=== PATIENT | female | born 1965 | race Caucasian/White ===

== ENCOUNTER → 2022-01-23 09:16 | Outpatient (CLI) | payer OTHER, BC, SELFPAY ==
--- NOTE | 2022-01-23 09:21 | XR_ITS ---
FINAL REPORT TECHNIQUE: Bone densitometry calculations of the lumbar spine and both hips were obtained. CLINICAL HISTORY: post menopausal screening FINDINGS: DEXA BONE DENSITY AXIAL SKELETON Using L1-4, the bone mineral density of the spine is 0.914 g/cm2, corresponding to T-score of -1.2. Using the left hip, the bone mineral density of the femoral neck is 0.754 g/cm2, corresponding to a T-score of -0.9. Using the right hip, the bone mineral density of the femoral neck is 0.722 g/cm2, corresponding to a T-score of -1.1. NOTE: T-score: Standard deviation compared with peak bone mass of young adult mean. *Following the recommendations of the International Society of Bone densitometry, classification of hip BMD is based on the lower of two T-scores; total hip or femoral neck. IMPRESSION: Diminished bone mineral density of the lumbar spine and hips consistent with osteopenia. Reviewed, Interpreted and Dictated by Mamadou Gant MD Transcribed by Citlaly Zhang Authenticated and [facility]
== END ==
PROVIDERS: PCP Family Medicine; Visit Provider Nurse Practitioner Family
DX: Z78.0 Asymptomatic menopausal state (principal); Z13.820 Encounter for screening for osteoporosis
CPT/HCPCS: 77080

== ENCOUNTER 2022-08-21 15:24 | Emergency (ER) | payer OTHER, SELFPAY ==
[2022-08-21] VITALS (8 sets, daily range): BP systolic 149–207; BP diastolic 81–103; PULSE 73–86; RESP 14–18; TEMP 36.7–36.8; O2SAT 94–99; BMI 31.6
--- NOTE | 2022-08-21 15:24 | ECG_ITS ---
APPROVED REPORT Exam: Resting ECG HR:96 bpm ECG Measurements Heart Rate 96 AXES ID 117 P 48 QRSd 99 QRS 31 QT 375 T 51 QTc 428 Conclusion SINUS RHYTHM WITH SHORT ID INTERVAL INCOMPLETE RIGHT BUNDLE BRANCH BLOCK [90+ ms QRS DURATION, TERMINAL R IN V1/V2, 40+ ms S IN I/aVL/V4/V5/V6] BORDERLINE ECG UNCONFIRMED REPORT Electronically signed by : Tristen Espinosa MD 08/22/2022 12:06:56
--- NOTE | 2022-08-21 15:34 | PC.NURSE ---
ER AT BEDSIDE
--- NOTE | 2022-08-21 15:35 | XR_ITS ---
PROCEDURE INFORMATION: Exam: XR Chest Exam date and time: 08/21/2022 4:34 PM Age: 57 years old Clinical indication: Pain; Chest pressure; Additional info: Chest pain TECHNIQUE: Imaging protocol: Radiologic exam of the chest. Views: 2 views. COMPARISON: No relevant prior studies available. FINDINGS: Lungs: Unremarkable. No consolidation. Pleural spaces: Unremarkable. No pleural effusion. No pneumothorax. Heart/Mediastinum: Unremarkable. No cardiomegaly. Bones/joints: Unremarkable. IMPRESSION: No acute findings.
[2022-08-21 15:43] LABS: Basophils # 0.1 K/mm3 (0-0.2); Basophils % 1.2 % (0.1-2.0); Eosinophils # 0.2 K/mm3 (0.0-0.4); Eosinophils % 2.2 % (0.1-12.0); Hematocrit 42.1 % (37.0-47.0); Hemoglobin 14.6 g/dL (12.2-16.2); Lymphocytes # 3.6 K/mm3 (0.7-4.5); Lymphocytes % 37.9 % (10-50); Mean Corpuscular HGB Conc 34.7 g/dL (31.8-35.4); Mean Corpuscular Hemoglobin 33.7 pg (27.0-31.2); Mean Corpuscular Volume 97.1 fl (81-99); Mean Platelet Volume 8.1 fl (7.4-10.4); Monocytes # 0.4 K/mm3 (0.1-1.0); Monocytes % 4.6 % (1.7-9.3); Neutrophils # 5.1 K/mm3 (1.8-7.8); Platelet Count 268 K/mm3 (142-424); Red Blood Count 4.33 M/mm3 (4.20-5.40); Red Cell Distribution Width 13.3 % (11.5-17.5); White Blood Count 9.4 K/mm3 (4.8-10.8)
[2022-08-21 15:52] LABS: Alanine Aminotransferase 28 U/L (12-78); Albumin Level 4.6 g/dl (3.5-5.0); Albumin/Globulin Ratio 1.4 (1.1-1.8); Alkaline Phosphatase 90 U/L (38-126); Anion Gap 10.8 mEq/L (5-15); Aspartate Amino Transferase 35 U/L (14-36); Bilirubin,Total 0.4 mg/dl (0.2-1.3); Blood Urea Nitrogen 12 mg/dl (7-17); Calcium 9.2 mg/dl (8.4-10.2); Carbon Dioxide 27 mmol/L (22.0-30.0); Chloride 107 mmol/L (98-107); Creatinine Clearance Estimated 105 mL/min (50-200); Estimated Glomerular Filt Rate 74 ml/min (>60); GFR (African American) 90 ML/MIN (>60); Globulin 3.2 g/dL (1.3-3.2); Glucose 124 mg/dl (74-100); Potassium 3.8 mmoL/L (3.5-5.1); Sodium 141 mmol/L (136-145); Total Protein,Serum 7.8 g/dl (6.3-8.2)
--- NOTE | 2022-08-21 15:56 | HMH.EDGENADL ---
Discharge Plan Disposition Patient Disposition: Home, Self-Care Condition: Good Chief Complaint: Chest Pain Prescriptions Prescriptions: No Action multivitamin Tablet 1 tab PO DAILY aspirin 81 mg Tablet 81 mg PO DAILY Repatha Syringe 140 mg/mL syringe 140 mg SQ WEEKLY Label Comments: INJECT 1 SYRINGE SUBCUTANEOUSLY EVERY 2 WEEKS. Rx Instructions: EVERY 2 WEEKS Activity Restrictions/Add. Instructions Additional Instructions/Restrictions: Home medication as directed. Return to ER for chest pain, shortness of breath PCP Wednesday. Clinical Impressions Clinical Impression: Atypical chest pain, Migraine, Gastroesophageal reflux disease Instructions Patient Instructions: DI for Atypical Chest Pain Discharge ED Provider: Yobani Ferrera General Adult HPI General Chief complaint: Chest Pain Stated complaint: chest pain Time Seen by Provider: 08/21/22 15:40 Mode of Arrival: Ambulatory Source of Information: Patient Limitations: No Limitations Description of Symptoms (Recalled from ER Triage Doc. by RN): PT STATES SHE HAS CHEST PAIN THAT STARTED ABOUT 45 MINUTES AGO, REPORTS PAIN IN THE CENTER OF HER CHEST, BACK, AND L ARM History of Present Illness HPI narrative: 57yo F patient was seated at work when she developed left-sided chest pain that radiated to her left shoulder and left neck. denies significant cardiac history. Endorsed mild nausea, diaphoresis, shortness of breath. Though symptoms have improved. Now she complains of severe headache. Reports a history of migraine. Denies any change in home medication recently. Denies any known sick contact. Related Data Home Medications Medication Instructions Recorded Confirmed aspirin 81 mg tablet 81 mg PO DAILY Blood thinner 08/21/22 08/21/22 evolocumab 140 mg/mL subcutaneous 140 mg SQ WEEKLY High cholesterol 08/21/22 08/21/22 syringe (Repatha Syringe) multivitamin 1 tab PO DAILY Supplement 08/21/22 08/21/22 Allergies Allergy/AdvReac Type Severity Reaction Status Date / Time codeine Allergy Verified 08/21/22 15:35 hydromorphone [From Dilaudid] Allergy Verified 08/21/22 15:35 [facility] Disclaimer: The information contained in this section may have been updated after the patient was seen, as this information can be updated by other users. Social History Smoking Status: Never smoker alcohol intake: never current occupational status: employed Travel in the last 8 weeks: None ROS Obtained: Yes Systems reviewed as appropriate & no additional complaints except as documented Physical Exam General General appearance: alert and in no apparent distress Head Head exam: atraumatic Eye Eye exam: Present normal appearance Neck Neck exam: Present normal inspection Chest Chest inspection: Present normal inspection Respiratory Respiratory exam: Present normal lung sounds bilaterally; Absent respiratory distress Cardiovascular Cardiovascular exam: Present regular rate, normal rhythm and normal heart sounds Abdominal Exam Abdominal exam: Present soft; Absent distention or tenderness Back Exam Back exam: Present normal inspection Neurological Exam Neurological exam: Present alert, oriented X3 and CN II-XII intact Psychiatric Psychiatric exam: Present normal affect Skin Skin exam: Present warm and dry Medical Decision Making Medical Records Medical records reviewed: Yes I reviewed the patient's medical records. Wei Inquiry Pt receiving controlled substance: No Vital Signs: 08/21/22 15:26 08/21/22 16:01 08/21/22 16:30 Temperature 98.1 F Temperature Source Oral Pulse Rate 79 76 Pulse Rate [Right Radial] 83 Respiratory Rate 18 14 18 Blood Pressure 167/89 H 169/88 H Blood Pressure [Right Arm] 207/103 H Blood Pressure Mean 108 Blood Pressure Mean [Right Arm] 137 Blood Pressure Source [Right Arm] Automatic Cuff Blood Pressure Position
[2022-08-21 16:05] LABS: Troponin I < 0.01 ng/ml (0.00-0.034)
--- NOTE | 2022-08-21 16:40 | PC.NURSE ---
radiology taking pt for xray
--- NOTE | 2022-08-21 16:52 | PC.NURSE ---
Return from imaging. Pt ambulated to bathroom. Pt assisted back in bed. Still c/o continuous headache. MD notified with new orders.
[2022-08-21 18:32] LABS: Troponin I < 0.01 ng/ml (0.00-0.034)
--- NOTE | 2022-08-21 18:57 | PC.NURSE ---
ASSISTED PT TO BATHROOM.
[2022-08-21 19:37] LABS: Coronavirus 19, PCR Not Detected (NotDetected); Influenza A, PCR Not Detected (NotDetected); Influenza B, PCR Not Detected (NotDetected)
== END 2022-08-21 19:20 | disposition home or self-care (01) ==
PROVIDERS: Emergency Provider Family Medicine
DX: R07.89 Other chest pain (principal); G43.909 Migraine, unspecified, not intractable, without status migrainosus; K21.9 Gastro-esophageal reflux disease without esophagitis
CPT/HCPCS: 71046; 80053; 84484; 85025; 93005; 96361; 96374; 96375; 99285; C9803; J2405; U0003; U0005

== ENCOUNTER → 2022-08-27 13:18 | Outpatient (CLI) | payer OTHER, SELFPAY ==
--- NOTE | 2022-08-27 13:21 | XR_ITS ---
FINAL REPORT CLINICAL HISTORY: foot pain FINDINGS: AP, oblique and lateral views of the right foot were obtained. There is no prior exam for comparison. There is no acute fracture or dislocation. There is mild multi joint degenerative disease, most pronounced involving the 1st metatarsophalangeal. Soft tissues are normal. IMPRESSION: Multi joint degenerative disease. Reviewed, Interpreted and Dictated by Carmen Bearden MD Transcribed by Isa Espinal Authenticated and [facility]
--- NOTE | 2022-08-27 13:21 | XR_ITS ---
FINAL REPORT CLINICAL HISTORY: ankle pain FINDINGS: AP, oblique, and lateral views of the right ankle were obtained. There is no prior exam for comparison. There is no fracture or dislocation. The ankle mortise is intact. Soft tissues are normal. IMPRESSION: No acute osseous abnormality of the right ankle. Reviewed, Interpreted and Dictated by Carmen Bearden MD Transcribed by Isa Espinal Authenticated and [facility]
--- NOTE | 2022-08-27 13:21 | XR_ITS ---
FINAL REPORT CLINICAL HISTORY: ankle pain FINDINGS: AP, oblique, and lateral views of the left ankle were obtained. There is no prior exam for comparison. There is no fracture or dislocation. The ankle mortise is intact. Soft tissues are normal. IMPRESSION: No acute osseous abnormality of the left ankle. Reviewed, Interpreted and Dictated by Carmen Bearden MD Transcribed by Isa Espinal Authenticated and . [facility]
--- NOTE | 2022-08-27 13:21 | XR_ITS ---
FINAL REPORT CLINICAL HISTORY: foot pain FINDINGS: AP, oblique and lateral views of the left foot were obtained. There is no prior exam for comparison. There is an age-indeterminate small avulsion fracture from the lateral base of the proximal phalanx of the great toe. There is multi joint degenerative disease. Mild hallux valgus deformity is identified. Soft tissues are normal. IMPRESSION: Age-indeterminate small avulsion of the great toe. Reviewed, Interpreted and Dictated by Carmen Bearden MD Transcribed by Isa Espinal Authenticated and [facility]
== END ==
PROVIDERS: PCP Nurse Practitioner Family; Visit Provider Physician Assistant Medical
DX: M79.672 Pain in left foot (principal); M79.671 Pain in right foot; M25.572 Pain in left ankle and joints of left foot; M25.571 Pain in right ankle and joints of right foot
CPT/HCPCS: 73610; 73630

== ENCOUNTER → 2022-09-09 15:02 | Outpatient (CLI) | payer OTHER, SELFPAY ==
--- NOTE | 2022-09-09 15:02 | MR_ITS ---
FINAL REPORT TECHNIQUE: Multi planar MR imaging was performed through the right foot. CLINICAL HISTORY: right foot pain and swelling since summer 2021 previous multiple stress fx COMPARISON: None FINDINGS: Bone marrow signal intensity is normal without edema, fracture or pathologic marrow replacement. There is mild multi joint degenerative disease. The Lisfranc joint is intact. The Lisfranc ligament is intact. The flexor and extensor tendons to the toes are intact. The Achilles tendon is intact. The plantar fascia is normal. There is no acute soft tissue abnormality. IMPRESSION: No acute abnormality. Reviewed, Interpreted and Dictated by Carmen Bearden MD Transcribed by Hodan Serrato Authenticated and [facility]
== END ==
PROVIDERS: PCP Nurse Practitioner Family; Visit Provider Nurse Practitioner Family
DX: M79.671 Pain in right foot (principal); Z87.312 Personal history of (healed) stress fracture
CPT/HCPCS: 73718